=== PATIENT | female | born 1970 | race Caucasian/White ===

== ENCOUNTER 2024-03-10 14:11 | Outpatient (CLI) | payer BC | END 2024-03-10 14:12 | disposition home or self-care (01) | LOC: CSHMAMMO 14:11 | PROVIDERS: ATTEND Family Medicine | DX: Z12.31 Encounter for screening mammogram for malignant neoplasm of breast (principal); Z85.820 Personal history of malignant melanoma of skin | CPT/HCPCS: 77063; 77067 ==